=== PATIENT | female | born 1975 | race African-American/Black ===

== ENCOUNTER 2024-12-19 15:58 | Emergency (ER) | payer BC, SELFPAY ==
[2024-12-19 19:10] LABS: #Basophils 0.05 10x3/uL (0.0-0.2); #Eosinophils 0.14 10x3/uL (0.0-0.7); #Monocytes 0.48 10x3/uL (0.11-0.59); #Neutrophils 2.63 10x3/uL (1.40-6.50); %Basophils 0.8 % (0.0-1.0); %Eosinophils 2.2 % (0.0-10.0); %Lymphocytes 47.1 % (21.0-51.0); %Monocytes 7.6 % (0.0-10.0); %Neutrophils 42.0 % (42.0-75.0); Hematocrit 33.1 % (36.0-47.0); Hemoglobin 9.9 g/dL (12.0-16.0); Mean Corpuscular Hemoglobin 24.1 pg (27.0-31.0); Mean Corpuscular Volume 80.5 fL (78.0-98.0); Platelet Count 434 10x3/uL (130-400); Red Blood Cell (RBC) Count 4.11 mill/uL (4.20-5.40); White Blood Cell (WBC) Count 6.28 10x3/uL (4.8-10.8)
[2024-12-19 19:17] LABS: Pregnancy Test - Urine (BHCG) Negative (Negative); Pregu Control Background? CLEAR/WHITE (CLR/WHITE); Pregu Control Bar Appear? YES (CONTROL BAR)
[2024-12-19 19:20] LABS: CAUTI Indications for Culture < 2yrs of age; Glucose, Urine (Dipstick) Normal (Negative); Leukocyte Negative Leu/uL (Negative); Protein, Urine (Dipstick) Negative (Neg-Trace); RBC/HPF 0-3 HPF (0-3); Specific Gravity, Urine 1.018 (1.002-1.036); WBC/HPF 0-3 HPF (0-3)
[2024-12-19 19:21] LABS: Bacteria/HPF 1+ HPF (None Seen)
[2024-12-19 19:22] LABS: Urine Culture Reflex Yes Yes
[2024-12-19 19:31] LABS: ALT (SGPT) 14 U/L (Less than 34); AST (SGOT) 21 U/L (11-34); Albumin 3.4 g/dL (3.1-4.5); Alkaline Phosphatase 56 U/L (40-110); Anion Gap 13 mmol/L (10-20); BUN (Urea Nitrogen) 13 mg/dL (7.0-18.7); Bilirubin, Total 0.2 mg/dL (0.3-1.2); Calc. Creatinine Clearance 0 mL/min (70-130); Calcium 8.9 mg/dL (7.8-10.44); Carbon Dioxide 21 mmol/L (22-29); Chloride 107 mmol/L (98-107); Globulin 4.0 g/dL (2.4-3.5); Glucose 83 mg/dL (70-105); Lipase 15 U/L (8-78); Potassium 3.6 mmol/L (3.5-5.1); Sodium 137 mmol/L (136-145)
== END 2024-12-19 20:30 | disposition home or self-care (01) ==
LOC: ERS 15:58
DX: R10.12 Left upper quadrant pain (principal)
CPT/HCPCS: 36415; 80053; 81001; 81025; 83690; 84484; 85025; 87077; 87086; 93005; 99284